=== PATIENT | male | born 2000 | race Caucasian/White ===

== ENCOUNTER → 2021-11-04 16:03 | Outpatient (CLI) | payer OTHER, SELFPAY ==
--- NOTE | ~2021-11-04 | XR_ITS ---
XR chest 2V DATE: 11/04/2021 16:20 INDICATION: Chronic cough TECHNIQUE: PA and lateral views COMPARISON: None FINDINGS: No pulmonary infiltrate or consolidation, pleural effusion or pulmonary vascular congestion or pneumothorax. Normal heart size. No hilar or mediastinal enlargement. IMPRESSION: No active cardiopulmonary disease Reviewed, dictated and finalized at [facility]
== END ==
PROVIDERS: PCP Pediatrics; Visit Provider Pediatrics
DX: R05.3 Chronic cough (principal)
CPT/HCPCS: 71046